=== PATIENT | female | born 1950 | race African-American/Black ===

== ENCOUNTER 2017-04-22 12:48 | Emergency (ER) | payer OTHER ==
[~2017-04-22] VITALS: Ht 170.2 cm; Wt 64.7 kg
[~2017-04-22 12:48] MED LIST: ADULT LOW STREN81 M2 PO; HYDROCODON-ACE1 EAC7 PO; [UNRECOGNIZED DRUG - REMARK]
[2017-04-22] MEDS ORDERED: UNABLE TO OBTAIN (13:48)
[2017-04-22 14:48] VITALS: BP 131/76
== END 2017-04-22 14:50 | disposition home or self-care (01) ==
LOC: EME 12:48
DX: T78.40XA Allergy, unspecified, initial encounter (principal); X58.XXXA Exposure to other specified factors, initial encounter; R21 Rash and other nonspecific skin eruption; L29.9 Pruritus, unspecified; Z79.82 Long term (current) use of aspirin
CPT/HCPCS: 99281; 99284; J1100